=== PATIENT | male | born 1970 | race Caucasian/White ===

== ENCOUNTER → 2020-06-18 | Outpatient (CLI) | payer OTHER | LOC: LAB 10:05 | PROVIDERS: ATTEND Nurse Anesthetist, Certified Registered | DX: Z01.812 Encounter for preprocedural laboratory examination (principal); Z20.828 Contact with and (suspected) exposure to other viral communicable diseases; K21.9 Gastro-esophageal reflux disease without esophagitis | CPT/HCPCS: U0003 ==

== ENCOUNTER → 2020-06-22 | Day surgery (SDC) | payer OTHER ==
[~2020-06-22] MED LIST: IV RINGERS SOLUTION,LACTATED 1,000 ML IV SCH; LIDOCAINE 2% PF 5 ML VIAL. ONE; PROPOFOL 10,000 MCG/ML (20ML) VIAL IV ONE
[2020-06-22 12:07] VITALS: BP 111/80
--- NOTE | 2020-06-25 15:07 | PATHOLOGY ---
[facility] Accession Number: [id number] . 01 Material submitted: . PART A: small bowel - SMALL BOWEL FOR CELIAC PART B: stomach - GASTRIC FOR H. PYLORI PART C: esophagus - DISTAL ESOPHAGUS. Modifiers: distal PART D: colon - RANDOM COLON BIOPSY PART E: colon - TRANSVERSE COLON POLYP. Modifiers: transverse PART F: colon - SIGMOID COLON POLYP. Modifiers: sigmoid . 01 Clinical history: . GERD/SCREENING . 02 Diagnosis: A. Small bowel biopsies: - No significant pathologic abnormalities. . B. Gastric biopsies: - Superficial congestion and slight chronic inflammation. . C. Esophageal biopsies, distal esophagus: - Segments of hyperplastic squamous esophageal mucosa with focal contiguous columnar-lined mucosa showing chronic inflammation and intestinal metaplasia with goblet cells consistent with Disla's change. . D. Colonic mucosa, random colon, biopsies: - No significant pathologic abnormalities. . E. Colon biopsies, transverse colon polyp: - Tubular adenoma(s). . F. Colon biopsy, sigmoid colon polyp: - Hyperplastic polyp. . (JPM:roselia; 06/25/2020) [facility] 06/25/2020 0956 Local . 02 Comment: Sections of the small bowel biopsy reveal segments of duodenal and small intestin mucosa. Where best oriented, the mucosal-villi show no sprue-like changes or significant inflammatory changes. . Sections of the gastric biopsy reveal segments of gastric body mucosa showing superficial congestion, hemorrhage, and slight chronic inflammation. A properly-controlled immunoperoxidase stain for Helicobacter is negative for Helicobacter organisms. . Sections of the distal esophageal biopsy reveal segments of hyperplastic squamous esophageal mucosa, one of which has contiguous columnar-lined mucosa showing chronic inflammation and intestinal metaplasia with goblet cells consistent with Disla's change. There is no dysplasia or evidence of malignancy. . Sections of the random colon biopsy reveal multiple segments of colonic mucosa. There is no evidence of a chronic destructive colitis, lymphocytic colitis, or collagenous colitis. . Sections of the transverse colon biopsy reveal multiple segments of tubular adenoma. There is no high grade dysplasia or evidence of malignancy. . Sections of the sigmoid colon biopsy reveal a single hyperplastic polyp. There are no adenomatous changes or evidence of malignancy. . Special stain performed: Immunoperoxidase stain for Helicobacter on B1. . (JPM:mml; 06/25/2020) . 02 Electronically signed: . Antolin Greenwood MD, Pathologist NPI- [id number] . 01 Gross description: . A. Received in formalin labeled "Taz Norman, small bowel rule out celiac" are two vieyra-brown soft tissue fragments measuring in aggregate 0.6 x 0.3 x 0.1 cm. The specimen is submitted entirely in A1. . B. Received in formalin labeled "Taz Norman, gastric rule out H. pylori" are two vieyra-brown soft tissue fragments measuring in aggregate 0.7 x 0.4 x 0.1 cm. The specimen is submitted entirely in B1. . C. Received in formalin labeled "Ester, Taz, distal esophagus" is a fragment of vieyra-brown soft tissue measuring 0.4 x 0.3 x 0.1 cm. The specimen is submitted entirely in C1. . D. Received in formalin labeled "Taz Norman, random colon BX" are multiple vieyra-brown soft tissue fragments measuring in aggregate 1.2 x 0.5 x 0.1 cm. The specimen is submitted entirely in D1. . E. Received in formalin labeled "Taz Norman, transverse polyp" are multiple vieyra-brown soft tissue fragments measuring in aggregate 0.6 x 0.3 x 0.1 cm. The specimen is submitted entirely in E1. . F. Received in formalin labeled "Ester, Taz, sigmoid colon polyp" is a fragment of vieyra-brown soft tissue measuring 0.3 x 0.2 x 0.1 cm. The specimen is submitted entirely in F1. ([facility]; 06/24/2020) [facility] 06/24/2020 0943 Local . 02 Pathologist provided ICD-10: K31.89, K29.50, K20.90, D12.3, K63.5 . 02 CPT . 423119, 151257, 071854, [id number], 073270, [id number], [id number] Specimen Comment: A courtesy copy of this report has been sent to [phone], [phone] Specimen Comment: [id number] Specimen Comment: Report sent to / DR ALANIZ Performed at: 01 [facility] [address] [facility] [address], [place] [id number] MD Billy Servin MD Phone: [phone] Performed at: 02 [facility] [address] [place], [place] [id number] MD Antolin Greenwood MD Phone: [phone]
== END | disposition home or self-care (01) ==
LOC: SURG 09:58
PROVIDERS: ATTEND Emergency Medicine
DX: R19.7 Diarrhea, unspecified (principal); K21.9 Gastro-esophageal reflux disease without esophagitis; D12.3 Benign neoplasm of transverse colon; K57.30 Diverticulosis of large intestine without perforation or abscess without bleeding; K22.8 Other specified diseases of esophagus; K29.50 Unspecified chronic gastritis without bleeding; K29.71 Gastritis, unspecified, with bleeding
CPT/HCPCS: 43239; 45380; 88305; 88342; J2001; J2704; J7120; 43235